=== PATIENT | male | born 1985 | race Caucasian/White ===

== ENCOUNTER 2022-08-19 12:17 | Emergency (ER) | payer OTHER ==
[~2022-08-19] VITALS: Ht 172.7 cm; Wt 68.0 kg
[2022-08-19 12:25] VITALS: BP 166/88
[2022-08-19] MEDS ORDERED: ONDANSETRON 4MG ODT PO NR (13:00)
[2022-08-19] MEDS ORDERED: CHLORDIAZEPOXIDE 25MG CAPSULE PO ONE (13:00)
[2022-08-19] MEDS ORDERED: CHLORDIAZEPOXIDE 25MG CAPSULE PO NR (13:30)
== END 2022-08-19 15:04 ==
LOC: ER 12:31
DX: F10.239 Alcohol dependence with withdrawal, unspecified (principal); Y90.0 Blood alcohol level of less than 20 mg/100 ml; R11.2 Nausea with vomiting, unspecified; F41.9 Anxiety disorder, unspecified
CPT/HCPCS: 36415; 84484; 93005; 99284; Q0162